=== PATIENT | male | born 1985 | race Caucasian/White ===

== ENCOUNTER 2020-12-06 18:03 | Inpatient (IN) ==
[2020-12-06] MEDS ORDERED: NS 0.9% 1000 ml BAG 1,000 ML IV ONE ×2 (18:25→20:01)
[2020-12-06 19:02] LABS: ABS Eosinophils 0.1 10^3/ul (0-0.6); ABS Lymphocytes 1.4 10^3/ul (1.0-4.8); ABS Monocytes 0.9 10^3/ul (0-0.8); ABS Neutrophils 7.6 10^3/ul (1.5-7.7); Hematocrit 39 % (42-52); Hemoglobin 13.1 g/dL (14.0-18.0); Lymphocyte % 14.1 %; Mean Corpuscular HGB Conc 34 g/dL (31-36); Mean Corpuscular Hemoglobin 29 pg (27-31); Mean Corpuscular Volume 84 fL (80-94); Mean Platelet Volume 8.1 fL (7.4-10.4); Nucleated Red Blood Cells % 0.1; Platelet Count 268 10^3/uL (150-450); Red Blood Count 4.58 10^6 /uL (4.18-5.48); Red Cell Distribution Width 13 % (10-15); White Blood Count 10.1 10^3/uL (3.5-10.8)
[2020-12-06] MEDS ORDERED: Ondansetron 4 mg VIAL 2 MG/ML 2 ml VIAL IV ONE (19:16)
[2020-12-06 19:19] LABS: Albumin 4.3 g/dL (3.2-5.2); Albumin/Globulin Ratio 1.4 (1-3); BUN/Creatinine Ratio 16.8 (8-20); C Reactive Protein 104.77 mg/L (<8.01); Calcium 9.4 mg/dL (8.6-10.3); EGFR African American 88.4 (>60); Globulin 3.1 g/dL (2-4); Potassium 3.8 mmol/L (3.5-5.0); Total Bilirubin 0.7 mg/dL (0.2-1.0); Total Protein 7.4 g/dL (6.4-8.9)
[2020-12-06] MEDS ORDERED: Iohexol 300 (CONTRAST) 10 ML SDV IV ONE (19:25)
[2020-12-06 21:07] LABS: Urine Appearance Clear; Urine Bilirubin Negative (Negative); Urine Blood Negative (Negative); Urine Color Yellow; Urine Glucose Negative (Negative); Urine Ketones Negative (Negative); Urine Nitrite Negative (Negative); Urine Protein Negative (Negative); Urine Specific Gravity 1.058 (1.010-1.030); Urine Urobilinogen Negative (Negative)
[2020-12-06] MEDS ORDERED: ZOSYN 3.375 GM x ONE DOSE over 30 miuntes IV (21:30)
[2020-12-07] MEDS: NS 0.9% 1000 ml BAG 1,000 ML IV SCH (00:39)
[2020-12-07] MEDS: oxyCODONE/Acetamin 5/325 mg TAB PO PRN ×5 (00:51→20:35)
[2020-12-07] MEDS: Piperacillin/Tazobactam VIAL 3.375 GM in NS 0.9% 100 ml BAG 100 ML IVPB SCH ×3 (02:31→18:33)
[2020-12-07] MEDS: Morphine 2 MG/ML SYRINGE IV PRN ×4 (05:42→20:35)
[2020-12-07 06:17] LABS: ABS Eosinophils 0.1 10^3/ul (0-0.6); ABS Lymphocytes 1.6 10^3/ul (1.0-4.8); ABS Monocytes 1.1 10^3/ul (0-0.8); Eosinophil % 1.6 %; Hematocrit 33 % (42-52); Hemoglobin 11.2 g/dL (14.0-18.0); Mean Corpuscular HGB Conc 34 g/dL (31-36); Mean Corpuscular Hemoglobin 29 pg (27-31); Mean Corpuscular Volume 85 fL (80-94); Platelet Count 225 10^3/uL (150-450); Red Blood Count 3.89 10^6 /uL (4.18-5.48); Red Cell Distribution Width 13 % (10-15)
[2020-12-08] MEDS: NS 0.9% 1000 ml BAG 1,000 ML IV SCH (00:32)
[2020-12-08] MEDS: Morphine 2 MG/ML SYRINGE IV PRN ×6 (00:32→23:09)
[2020-12-08] MEDS: oxyCODONE/Acetamin 5/325 mg TAB PO PRN ×6 (00:33→23:08)
[2020-12-08] MEDS: Piperacillin/Tazobactam VIAL 3.375 GM in NS 0.9% 100 ml BAG 100 ML IVPB SCH ×3 (02:08→18:47)
[2020-12-09] MEDS: Piperacillin/Tazobactam VIAL 3.375 GM in NS 0.9% 100 ml BAG 100 ML IVPB SCH ×3 (02:05→18:24)
[2020-12-09] MEDS: NS 0.9% 1000 ml BAG 1,000 ML IV SCH (02:07)
[2020-12-09] MEDS: oxyCODONE/Acetamin 5/325 mg TAB PO PRN ×4 (04:18→21:19)
[2020-12-09] MEDS: Morphine 2 MG/ML SYRINGE IV PRN ×3 (04:19→16:56)
[2020-12-09] MEDS: diPHENhydraMINE IV 50 MG/ML 1 ml VIAL (BENADRYL) SLOW PUSH PRN (18:26)
[2020-12-09] MEDS ORDERED: Magnesium Hydroxide LIQ 30 ML UDC PO ONE (20:00)
[2020-12-10] MEDS: NS 0.9% 1000 ml BAG 1,000 ML IV SCH ×2 (01:27→14:02)
[2020-12-10] MEDS: diPHENhydraMINE IV 50 MG/ML 1 ml VIAL (BENADRYL) SLOW PUSH PRN ×2 (02:23→18:06)
[2020-12-10] MEDS: Piperacillin/Tazobactam VIAL 3.375 GM in NS 0.9% 100 ml BAG 100 ML IVPB SCH ×3 (02:25→18:06)
[2020-12-10] MEDS: oxyCODONE/Acetamin 5/325 mg TAB PO PRN ×4 (02:30→21:05)
[2020-12-10] MEDS ORDERED: Iohexol 300 (CONTRAST) 10 ML SDV IV ONE (09:06)
[2020-12-10] MEDS ORDERED: Magnesium Hydroxide LIQ 30 ML UDC PO ONE (10:37)
[2020-12-10 13:18] LABS: ABS Basophils 0.1 10^3/ul (0-0.2); ABS Eosinophils 0.1 10^3/ul (0-0.6); ABS Lymphocytes 1.5 10^3/ul (1.0-4.8); ABS Monocytes 0.7 10^3/ul (0-0.8); Eosinophil % 1.2 %; Hematocrit 36 % (42-52); Hemoglobin 12.2 g/dL (14.0-18.0); Lymphocyte % 16.4 %; Mean Corpuscular HGB Conc 34 g/dL (31-36); Mean Corpuscular Hemoglobin 29 pg (27-31); Mean Corpuscular Volume 84 fL (80-94); Mean Platelet Volume 7.9 fL (7.4-10.4); Platelet Count 363 10^3/uL (150-450); Red Blood Count 4.27 10^6 /uL (4.18-5.48); Red Cell Distribution Width 13 % (10-15); White Blood Count 9.4 10^3/uL (3.5-10.8)
[2020-12-10] MEDS ORDERED: diPHENhydraMINE IV 50 MG/ML 1 ml VIAL (BENADRYL) IV ONE (21:08)
[2020-12-10] MEDS ORDERED: Cefepime 2 GM in Dextrose 2 GM/50 ML BAG IV SCH (22:00)
[2020-12-11] MEDS: metroNIDAZOLE IV 500 MG/100ML 500 MG/100 ML BAG IVPB SCH ×2 (00:17→05:36)
[2020-12-11] MEDS: oxyCODONE/Acetamin 5/325 mg TAB PO PRN (02:05)
[2020-12-11] MEDS: diPHENhydraMINE IV 50 MG/ML 1 ml VIAL (BENADRYL) SLOW PUSH PRN ×2 (02:05→10:02)
[2020-12-11 07:28] VITALS: BP 118/67
== END 2020-12-11 10:40 | disposition home or self-care (01) | DRG 711 ==
LOC: ED 18:03 → SSU 18:03
PROVIDERS: ADMIT Surgery; ATTEND Surgery